=== PATIENT | female | born 2000 | race Caucasian/White ===

== ENCOUNTER 2022-04-09 16:29 | Outpatient (CLI) | payer BC ==
[2022-04-09 17:18] LABS: BHCG - Serum Negative (NEGATIVE); Pregs Control Background? CLEAR/WHITE (CLR/WHITE); Pregs Control Bar Appear? YES (CONTROL BAR)
== END 2022-04-09 16:30 | disposition home or self-care (01) ==
LOC: LABBT 16:29
PROVIDERS: ATTEND Specialist
DX: Z01.812 Encounter for preprocedural laboratory examination (principal); J35.1 Hypertrophy of tonsils; J02.9 Acute pharyngitis, unspecified; R06.83 Snoring
CPT/HCPCS: 84703; 85014

== ENCOUNTER 2022-04-11 07:05 | Day surgery (SDC) | payer BC ==
[2022-04-10 11:18] VITALS: BMI 18.7
[2022-04-11] MEDS ORDERED: Ferric Subsulfate (ASTRINGYN) 8 GM VIAL ONE (09:27)
[2022-04-11] MEDS ORDERED: fentaNYL PF 100 MCG/2 ML SYRINGE ONE (09:30)
[2022-04-11] MEDS ORDERED: Ondansetron PF 4 MG/2 ML Vial ONE (09:53)
[2022-04-11] MEDS ORDERED: PROPOFOL 200 MG/20 ML VIAL ONE (09:53)
[2022-04-11] MEDS ORDERED: Dexamethasone 20 MG/5 ML VIAL ONE (09:53)
[2022-04-11] MEDS ORDERED: FENTANYL 50 MCG/ML 1 ML VIAL ONE (10:56)
[2022-04-11] MEDS ORDERED: Hydrocodone-Acetamin 15 ML UDCUP ONE (12:08)
== END 2022-04-11 12:47 | disposition home or self-care (01) ==
LOC: SDC 07:05
PROVIDERS: ATTEND Specialist
PROC: 0CTPXZZ Resection of Tonsils, External Approach (ICD-10-PCS; principal; 2022-04-11)
PROC: 0CTQXZZ Resection of Adenoids, External Approach (ICD-10-PCS; principal; 2022-04-11)
DX: J03.91 Acute recurrent tonsillitis, unspecified (principal); J35.01 Chronic tonsillitis
CPT/HCPCS: 88304; J1100; J2405; J2704; J3010